=== PATIENT | male | born 1985 | race African-American/Black ===

== ENCOUNTER 2016-12-17 08:33 | Emergency (ER) | payer MEDICAID, OTHER ==
[~2016-12-17] VITALS: Ht 175.3 cm; Wt 115.0 kg
[~2016-12-17 08:33] MED LIST: CIPR500T2 PO; Z.0.NO CURRENT MEDS
[2016-12-17 08:53] VITALS: BP 140/94; PULSE 69; RESP 18; TEMP 98.2; O2SAT 97
--- NOTE | 2016-12-17 09:05 | PD ---
HPI Chief Complaint: Eye Problems/Injury Time Seen by Provider: 09:05 Travel History International Travel<30 days: No Contact w/Intl Traveler<30days: No Traveled to known affect area: No History of Present Illness HPI 31-year-old male with no significant medical history presents to the emergency room for evaluation of redness and irritation of the right eye. Patient noted this yesterday. He woke up with crusting of the right eyebrow this morning. Denies any trauma. Does not feel like there is a foreign body in the eye. Believes he has pinkeye. Has not been recently ill. No visual disturbances. No other symptoms to report. PFSH Past Medical History Medical History: Denies Significant Hx Diminished Hearing: No Social History Alcohol Use: No Tobacco Use: Yes (BLACK AND MILDS) Substance Use: No Allergies-Medications (Allergen,Severity, Reaction): Coded Allergies: No Known Allergies (Verified , 08/17/07) Reported Meds & Prescriptions Reported Meds & Active Scripts Active Polytrim Opth Drops (Polymyxin/Trimethoprim Sulfate) 10,000-0.1 Unit/Ml-% Soln 1 Drop EACH EYE Q6HR Ciprofloxacin Hcl 500 Mg Tab 500 Mg PO BID 5 Days Reported No Current Meds (Miscellaneous Medication) Misc Review of Systems Except as stated in HPI: all other systems reviewed are Neg Physical Exam Narrative GENERAL: Well-nourished, well-developed well-nourished male patient, in no acute distress SKIN: Warm and dry. HEAD: Normocephalic. EYES: No scleral icterus. Injection of the right eye with crusting on eyelashes. EOMI. PERRLA. Under fluorescein examination there is no area of increased uptake. No foreign bodies identified. ENT: Mucosa pink and moist. No erythema or exudates. No uvular edema. No uvular , palatal, or tonsillar deviation. Airway patent. Nasal turbinates appear normal without nasal blood, purulent drainage or septal hematoma. NECK: Supple, trachea midline. No JVD or lymphadenopathy. CARDIOVASCULAR: Regular rate and rhythm without murmurs, gallops, or rubs. RESPIRATORY: Breath sounds equal bilaterally. No accessory muscle use. Data Data Last Documented VS Vital Signs Date Time Temp Pulse Resp B/P Pulse Ox O2 Delivery O2 Flow Rate FiO2 12/17/16 08:53 98.2 69 18 140/94 97 MDM Medical Decision Making Medical Screen Exam Complete: Yes Emergency Medical Condition: Yes Medical Record Reviewed: Yes Differential Diagnosis Conjunctivitis viral versus allergic versus arterial versus corneal abrasion versus iritis versus keratitis versus blepharitis Narrative Course 31-year-old male presents to emergency department for evaluation right eye irritation. Physical findings are consistent with a conjunctivitis. Patient is counseled on care and discharged home to follow-up with primary care provider. He agrees to return immediately with any acute worsening of symptoms. Diagnosis Primary Impression: Conjunctivitis Qualified Code: H10.31 - Acute conjunctivitis of right eye, unspecified acute conjunctivitis type Referrals: Primary Care Physician Patient Instructions: Conjunctivitis (ED), General Instructions Departure Forms: Tests/Procedures, Work Release Enter return to work date: Dec 18, 2016 Additional Instructions: Avoid rubbing eyes Follow-up with your primary care provider Frequent handwashing Return immediately to the emergency department with any acute worsening of symptoms Med/Other Pt SpecificInfo: Prescription(s) given Scripts Polymyxin B-Trimethoprim Opth Drops (Polytrim Opth Drops)10,000-0.1 Unit/Ml-% Soln1 Drop EACH EYE Q6HR #1 BOTTLE Ref 0 Prov:Yoselin Escalante 12/17/16 Disposition: 01 DISCHARGE HOME Condition: Stable Yoselin Escalante Dec 17, 2016 09:05
[2016-12-17] MEDS ORDERED: POLY10O EACH EYE (09:12)
== END 2016-12-17 10:00 | disposition home or self-care (01) ==
LOC: NEPB 08:33
DX: H10.31 Unspecified acute conjunctivitis, right eye (principal)
CPT/HCPCS: 99282